=== PATIENT | male | born 1990 | race Caucasian/White ===

== ENCOUNTER 2020-10-24 03:58 | Emergency (ER) | payer OTHER ==
[~2020-10-24] VITALS: Ht 172.7 cm; Wt 81.8 kg
[2020-10-24 04:27] LABS: BILIRUBIN,URINE LARGE (NEG); CLARITY,URINE TURBID; COLOR,URINE RED; NITRITE,URINE POSITIVE (NEG); PROTEIN,URINE >=300 mg/dL (NEG-TRACE)
[2020-10-24 04:30] LABS: BASO # 0.1 x10^3/uL (0.0-0.2); BASO % 1 % (0-3); EOS # 0.3 x10^3/uL (0.0-0.7); EOS % 2 % (0-3); HEMOGLOBIN 15.6 g/dL (13.0-17.5); LYMPH # 2.8 x10^3/uL (1.0-4.8); LYMPH % 26 % (24-48); MEAN CORPUSCULAR HEMOGLOBIN 30 pg (25-35); MEAN CORPUSCULAR HGB CONC 35 g/dL (31-37); MEAN CORPUSCULAR VOLUME 86 fL (79-100); MONO # 0.6 x10^3/uL (0.0-1.1); MONO % 6 % (0-9); NEUT # 7.1 x10^3/uL (1.8-7.7); NEUT % 66 % (31-73); PLATELET COUNT 222 x10^3/uL (140-400); RED BLOOD COUNT 5.25 x10^6/uL (4.30-5.70); RED CELL DISTRIBUTION WIDTH 13.2 % (11.5-14.5); WHITE BLOOD COUNT 10.9 x10^3/uL (4.0-11.0)
[2020-10-24] MEDS ORDERED: KETOROLAC 60 MG/2 ML VIAL. ONE (04:30)
[2020-10-24] MEDS ORDERED: IV NORMAL SALINE 1000ML BAG 1,000 ML IV ONE (04:30)
[2020-10-24] MEDS ORDERED: MORPHINE SULFATE 10 MG/ML VIAL. IV ONE ×2 (04:30→06:15)
[2020-10-24] MEDS ORDERED: ONDANSETRON PF 4 MG/2 ML VIAL. IVP ONE (04:30)
[2020-10-24] MEDS ORDERED: KETOROLAC 30 MG/ML VIAL. IVP ONE (04:30)
[2020-10-24 04:36] LABS: CALCIUM 8.7 mg/dL (8.5-10.1); GFR 86.6; POTASSIUM 3.4 mmol/L (3.5-5.1)
[2020-10-24 04:52] LABS: BACTERIA,URINE FEW /HPF (0-FEW); RBC,URINE TNTC /HPF (0-2)
--- NOTE | 2020-10-24 05:07 | RAD ---
PQRS Compliance Statement: One or more of the following individualized dose reduction techniques were utilized for this examinat ion: 1. Automated exposure control 2. Adjustment of the mA and/or kV according to patient size 3. Use of iterative reconstruction technique CT abdomen/pelvis without contrast 10/24/2020 4:40 AM INDICATION: Flank pain COMPARISON: None available TECHNIQUE: Multiple axial CT images of the abdomen and pelvis were obtained without intravenous contr ast. Coronal and sagittal reformats are provided. FINDINGS: Lung bases are clear. Heart size within normal limits. Evaluation of solid abdominal viscera is limit ed by lack of intravenous contrast. Liver, spleen, bilateral adrenal glands, pancreas and gallbladder are normal in appearance. The abdominal aorta is normal in course and caliber. There are no pathologically enlarged lymph nodes in the abdomen and pelvis. There is no abdominal free fluid. There is no free intraperitoneal air. Small and large bowel are normal in caliber. There is no evidence for bowel obstruction. There are no pericolonic inflammatory changes. A normal, nondilated appendix is visualized without adjacent infla mmatory changes. There is a 4 mm nonobstructing calculus in inferior pole of left kidney. There is a 2 mm nonobstructi ng calculus in interpolar left kidney. There is mild left hydroureteronephrosis with a 3 mm calculus in the proximal left ureter immediately distal to the left ureteropelvic junction. High attenuation w ithin the urinary bladder could reflect hematuria. Prostate and seminal vesicles are normal in appear ance. No suspicious osseous normality is identified. IMPRESSION: 1. There is mild left hydroureteronephrosis with a 3 mm calculus identified immediately distal to the left ureteropelvic junction. 2. Nonobstructing left-sided renal calculi are identified measuring up to 4 mm in inferior pole left kidney. 3. High attenuation within the urinary bladder could reflect hematuria. Correlate with urinalysis. Electronically signed by: Minda Ng MD (10/24/2020 5:04 AM) [facility]
[2020-10-24] MEDS ORDERED: cefTRIAXone IV Push 1 GM VIAL. IVP ONE (05:15)
[2020-10-24] MEDS ORDERED: oxyCODONE/APAP 5/325 1 TAB TABLET PO ONE (05:15)
[2020-10-24] MEDS ORDERED: CEPH-264 PO (05:53)
[2020-10-24] MEDS ORDERED: OXYC1TAB15 PO (05:53)
--- NOTE | 2020-10-24 05:56 | ED.ADGEN ---
Past Medical History Past Medical History: Asthma, Kidney Stone Past Surgical History: Other Additional Past Surgical Histo: WRIST, KNEE Smoking Status: Never Smoker Alcohol Use: Rarely General Adult EDM: Chief Complaint: FLANK PAIN HPI: HPI: Patient is a 30-year-old male who presents to the emergency room complaining of flank pain that woke him up suddenly in the middle the night. He feels like this is exactly like when he had a kidney stone 2003. Pain is severe and he has some diaphoresis with it. He has had some hematuria since he woke up. He has had some mild nausea. Pain comes in waves but is always there. Radiation into his groin. Has not tried anything for the pain. Review of Systems: Review of Systems: Complete ROS is negative unless otherwise documented in HPI Current Medications: Current Medications Medications (Trade) Dose Ordered Sig/Nancy Start Time Stop Time Status Last Admin Dose Admin Ceftriaxone Sodium (Rocephin) 1 gm 1X ONCE 10/24/20 05:15 10/24/20 05:16 DC 10/24/20 05:18 1 GM Ketorolac Tromethamine (Toradol 30mg Vial) 30 mg 1X ONCE 10/24/20 04:30 10/24/20 04:46 DC 10/24/20 04:36 30 MG Ketorolac Tromethamine (Toradol Im) 60 mg STK-MED ONCE 10/24/20 04:30 10/24/20 04:30 DC Morphine Sulfate (Morphine Sulfate) 5 mg 1X ONCE 10/24/20 06:15 10/24/20 06:16 DC 10/24/20 06:16 5 MG Ondansetron HCl (Zofran) 4 mg 1X ONCE 10/24/20 04:30 10/24/20 04:46 DC 10/24/20 04:32 4 MG Oxycodone/ Acetaminophen (Percocet 5/325) 2 tab 1X ONCE 10/24/20 05:15 10/24/20 05:16 DC 10/24/20 05:19 2 TAB Sodium Chloride 1,000 ml @ 1,000 mls/hr 1X ONCE 10/24/20 04:30 10/24/20 05:29 DC 10/24/20 04:37 1,000 MLS/HR Allergies: Allergies: Allergies Coded Allergies Type Severity Reaction Last Updated Verified No Known Drug Allergies 12/29/20 No Physical Exam: PE: General: Awake, alert, appears uncomfortable, diaphoretic HEENT: Atraumatic, EOMI, PERRL, airway patent, moist oral mucosa Neck: Supple, trachea midline Respiratory: CTA bilaterally, normal effort, no wheezing/crackles CV: RRR, no murmur, cap refill <2 GI: Soft, nondistended, nontender, no masses MSK: No obvious deformities Skin: Warm, intact Neuro: A&O x3, speech NL, sensory and motor grossly intact, no focal deficits Psych: Normal affect, normal mood, not suicidal or homicidal Current Patient Data: Labs: Laboratory Tests Test 10/24/20 04:05 10/24/20 04:11 Urine Collection Type Unknown Urine Color Red Urine Clarity Turbid Urine pH 5.0 (<5.0-8.0) Urine Specific [place] 1.025 (1.000-1.030) Urine Protein >=300 mg/dL (NEG-TRACE) Urine Glucose (UA) Negative mg/dL (NEG) Urine Ketones (Stick) 15 mg/dL (NEG) Urine Blood Large (NEG) Urine Nitrite Positive (NEG) Urine Bilirubin Large (NEG) Urine Urobilinogen Dipstick 1.0 mg/dL (0.2 mg/dL) Urine Leukocyte Esterase Moderate (NEG) Urine RBC Tntc /HPF (0-2) Urine WBC 1-4 /HPF (0-4) Urine Squamous Epithelial Cells Occ /LPF Urine Bacteria Few /HPF (0-FEW) Urine Mucus Mod /LPF White Blood Count 10.9 x10^3/uL (4.0-11.0) Red Blood Count 5.25 x10^6/uL (4.30-5.70) Hemoglobin 15.6 g/dL (13.0-17.5) Hematocrit 45.0 % (39.0-53.0) Mean Corpuscular Volume 86 fL (79-100) Mean Corpuscular Hemoglobin 30 pg (25-35) Mean Corpuscular Hemoglobin Concent 35 g/dL (31-37) Red Cell Distribution Width 13.2 % (11.5-14.5) Platelet Count 222 x10^3/uL (140-400) Neutrophils (%) (Auto) 66 % (31-73) Lymphocytes (%) (Auto) 26 % (24-48) Monocytes (%) (Auto) 6 % (0-9) Eosinophils (%) (Auto) 2 % (0-3) Basophils (%) (Auto) 1 % (0-3) Neutrophils # (Auto) 7.1 x10^3/uL (1.8-7.7) Lymphocytes # (Auto) 2.8 x10^3/uL (1.0-4.8) Monocytes # (Auto) 0.6 x10^3/uL (0.0-1.1) Eosinophils # (Auto) 0.3 x10^3/uL (0.0-0.7) Basophils # (Auto) 0.1 x10^3/uL (0.0-0.2) Sodium Level 142 mmol/L (136-145) Potassium Level 3.4 mmol/L (3.5-5.1) L Chloride Level 104 mmol/L (98-107) Carbon Dioxide Level 27 mmol/L (21-32) Anion Gap 11 (6-14) Blood Urea Nitrogen 12 mg/dL (8-26) Creatinine 1.0 mg/dL (0.7-1.3) Estimated GFR (Cockcroft-Gault) 86.6 Glucose Level 129 mg/dL (70-99) H Calcium Level 8.7 mg/dL (8.5-10.1) Laboratory Tests 10/24/20 04:11 Laboratory Tests 10/24/20 04:11 Vital Signs: Vital Signs Date Time Temp Pulse Resp B/P (MAP) Pulse Ox O2 Delivery O2 Flow Rate FiO2 10/24/20 07:40 82 20 131/78 (95) 97 Room Air 10/24/20 04:04 97.8 97.8 EKG: EKG: [] Heart Score: Risk Factors: Risk Factors: DM, Current or recent (<one month) smoker, HTN, HLP, family history of CAD, obesity. Risk Scores: Score 0 - 3: 2.5% MACE over next 6 weeks - Discharge Home Score 4 - 6: 20.3% MACE over next 6 weeks - Admit for Clinical Observation Score 7 - 10: 72.7% MACE over next 6 weeks - Early Invasive Strategies Radiology/Procedures: Radiology/Procedures: IMAGING REPORT Signed PATIENT: BRENDA LOVE ACCOUNT: [id number] : 1990 LOCATION: ER AGE: 30 SEX: M EXAM STATUS: REG ER ORD. PHYSICIAN: PATRICIA UGALDE MD REASON: flank pain PROCEDURE: CT ABDOMEN PELVIS WO CONTRAST PQRS Compliance Statement: One or more of the following individualized dose reduction techniques were utilized for this examination: 1. Automated exposure control 2. Adjustment of the mA and/or kV according to patient size 3. Use of iterative reconstruction technique CT abdomen/pelvis without contrast 10/24/2020 4:40 AM INDICATION: Flank pain COMPARISON: None available TECHNIQUE: Multiple axial CT images of the abdomen and pelvis were obtained without intravenous contrast. Coronal and sagittal reformats are provided. FINDINGS: Lung bases are clear. Heart size within normal limits. Evaluation of solid abdominal viscera is limited by lack of intravenous contrast. Liver, spleen, bilateral adrenal glands, pancreas and gallbladder are normal in appearance. The abdominal aorta is normal in course and caliber. There are no pathologically enlarged lymph nodes in the abdomen and pelvis. There is no abdominal free fluid. There is no free intraperitoneal air. Small and large bowel are normal in caliber. There is no evidence for bowel o bstruction. There are no pericolonic inflammatory changes. A normal, nondilated appendix is visualized without adjacent inflammatory changes. There is a 4 mm nonobstructing calculus in inferior pole of left kidney. There is a 2 mm nonobstructing calculus in interpolar left kidney. There is mild left hydroureteronephrosis with a 3 mm calculus in the proximal left ureter immediately distal to the left ureteropelvic junction. High attenuation within the urinary bladder could reflect hematuria. Prostate and seminal vesicles are normal in appearance. No suspicious osseous normality is identified. IMPRESSION: 1. There is mild left hydroureteronephrosis with a 3 mm calculus identified immediately distal to the left ureteropelvic junction. 2. Nonobstructing left-sided renal calculi are identified measuring up to 4 mm in inferior pole left kidney. 3. High attenuation within the urinary bladder could reflect hematuria. Correlate with urinalysis. Electronically signed by: Stefan Houston MD (10/24/2020 5:04 AM) [facility] DICTATED and SIGNED BY: STEFAN HOUSTON MD DATE: 10/24/20 [id number] 0 Course & Med Decision Making: Course & Med Decision Making Pertinent Labs and Imaging studies reviewed. (See chart for details) Patient is a 30 year old who presents to the Emergency Room complaining of flank pain. On exam, patient appears uncomfortable and is diaphoretic. Patient's presentation is concerning for a possible kidney stone. Patient was given morphine, Toradol, Percocet for pain relief. CBC, BMP, UA were ordered to evaluate for kidney function and infection. CT abdomen and pelvis without contrast was ordered to evaluate for a kidney stone. CT shows 3 mm stone. At this time, patient does not have significant infection, signs of sepsis, FALGUNI, or uncontrolled pain that requires admission. Patient will be treated symptomatically and referred to urology. Patient's test results and vitals while in the ED were fully reviewed and discussed with the patient. Patient is stable and at this time does not need admission to the hospital. We have discussed strict return precautions and the importance of following up with their Primary Care Physician. Patient stated understanding and was given an opportunity to ask any questions. Patient is in agreement with plan. I received signout at shift change from Dr. Ugalde-to reassess patient's analgesia. Patient now calm in no distress and states his pain is significantly decreased and feels well to return home. Pt does have a complicated UTI in the setting of mild left hydro with 3 mm stone at UVJ. Pt has been in contact with his urologist, Dr. Osman. Pt understands risk of sepsis with uti and obstructive uropathy, but given well appearance, afebrile, and that he does not meet sirs criteria, agrees with plan to dc home with abx, flomax, zofran odt and analgesia. Pt will strain urine, drink copious water (80 ounces/day) and understands strict ED return precautions for fever, flulike symptoms, nausea, vomiting, severe pain, inability to void or confusion (sepsis, renal obstruction, worsening pain, etc). Encouraged urgent outpatient follow-up with PMD and urgent urology evaluation-ct report printed for pt to take to Dr. Osman. Life-threatening processes were considered but are low suspicion at this time, given history, physical exam and ED workup. Pt was educated on all prescription medications and adverse effects. All patient's questions were answered and pt was stable at time of discharge. Life/limb-threatening differential includes but is not limited to, aortic dissection/aneurysm, cauda equina syndrome, transverse myelitis, spinal cord/epidural compression syndromes, discitis, spinal stenosis, epidural abscess or hematoma, osteomyelitis, disc herniation, surgical abdomen, stable or unstable fracture, renal/ureteral colic, sepsis, meningitis, musculoskeletal injury, traumatic injury, intraabdominal/retroperitoneal or pelvic bleeding. I spoken with the patient and her caregivers. I explained the patient's condition, diagnoses and treatment plan based on the information available to me at this time. I have answered the patient and her caregiver's questions and addressed any concerns. The patient and her caregivers have a good understanding of patient's diagnosis, condition and treatment plan as can be expected at this point. Vital signs have been stable. Patient's condition is stable and appropriate for discharge from the emergency department. Patient will pursue further outpatient evaluation with primary care physician or other designated or consulting physician as outlined in the discharge instructions. The patient and/or caregivers are agreeable to this plan of care and follow-up instructions have been explained in detail. The patient and/or caregivers have received these instructions in written form and have expressed an understanding of the discharge instructions. The patient and/or caregivers are aware that any significant change of condition or worsening of symptoms should prompt immediate return to this or the closest emergency department or call to 911. [employer] Disclaimer: Debby Disclaimer: This electronic medical record was generated, in whole or in part, using a voice recognition dictation system. Departure Departure Impression: Primary Impression: Kidney stone Additional Impression: UTI (urinary tract infection) Disposition: 01 CT HOME SELF CARE/HOMELESS Condition: STABLE Referrals: DOM COOK (PCP) Patient Instructions: Kidney Stones, Urinary Tract Infection Additional Instructions: Follow up with Urology-Dr. Osman within 3-5 days [id number] [facility] [id number], [place] [address] Scripts Hydrocodone/Apap 5-325 (NORCO 5-325 TABLET) 1 Each Tablet 1 TAB PO PRN Q6HRS PRN for PAIN, #4 TAB 0 Refills Prov: KALIA CROWLEY DO 10/24/20 Tamsulosin Hcl (FLOMAX) 0.4 Mg Cap.er.24h 1 CAP PO DAILY for 7 Days, #7 CAP 0 Refills Prov: KALIA CROWLEY DO 10/24/20 Ondansetron Hcl (ZOFRAN) 4 Mg Tablet 1 TAB PO PRN Q6-8HRS, #16 TAB Prov: KALIA CROWLEY DO 10/24/20 Cephalexin (KEFLEX) 500 Mg Capsule 1 CAP PO Q12HR for 10 Days, #20 CAP Prov: PATRICIA UGALDE MD 10/24/20 Oxycodone/Apap 5-325 (PERCOCET 5-325 MG TABLET ) 1 Each Tablet 1 TAB PO PRN Q6HRS PRN for PAIN, #12 TAB 0 Refills Prov: PATRICIA UGALDE MD 10/24/20 Problem Qualifiers PATRICIA UGALDE MD Oct 24, 2020 05:56 KALIA CROWLEY DO Oct 24, 2020 07:36
[2020-10-24] MEDS ORDERED: ONDA4TAB7 PO (07:35)
[2020-10-24] MEDS ORDERED: HYDR-3164 PO (07:35)
[2020-10-24] MEDS ORDERED: TAMS0.4C97 PO (07:35)
[2020-10-24 07:40] VITALS: BP 131/78
== END 2020-10-24 08:20 | disposition home or self-care (01) ==
LOC: ER 03:58
DX: N13.2 Hydronephrosis with renal and ureteral calculous obstruction (principal); N39.0 Urinary tract infection, site not specified; R31.9 Hematuria, unspecified; J45.909 Unspecified asthma, uncomplicated
CPT/HCPCS: 36415; 74176; 80048; 81001; 85025; 96361; 96374; 96375; 96376; 99284; J0696; J1885; J2270; J2405; J7030